=== PATIENT | male | born 1985 | race Caucasian/White ===

== ENCOUNTER 2016-12-11 08:38 | Emergency (ER) | payer BC ==
[2016-12-11 08:56] VITALS: BP 142/85
--- NOTE | 2016-12-11 09:06 | UC ---
Abdominal Pain Male HPI - HPI Summary HPI Summary: ONSET THIS MORNING OF SHARP RIGHT LOW BACK PAIN AND RIGHT LOWER ABDOMEN/GROIN PAIN. INTERMITTENT NAUSEA. DENIES URINARY SX. NO FEVER. WONDERS IF HE HURT HIS BACK PUSHING HIS CAR OUT OF THE SNOW YESTERDAY. CAN NOT GET COMFORTABLE. TOOK 400MG IBUPROFEN 2.5 HOURS AGO - NO NOTICEABLE RELIEF. - History of Current Complaint Chief Complaint: UCBackPain Stated Complaint: LOWER BACK PAIN Time Seen by Provider: 12/11/16 08:52 Hx Obtained From: Patient Onset/Duration: Sudden Onset, Lasting Hours, Still Present Timing: Constant Severity Initially: Moderate Severity Currently: Severe Pain Intensity: 8 Pain Scale Used: 0-10 Numeric Location: Discrete At: RLQ Radiates: Yes Radiates to: Back, Flank Character: Sharp Aggravating Factor(s):: Nothing Alleviating Factor(s): Nothing Associated Signs And Symptoms: Positive: Back Pain, Nausea. Negative: Fever, Constipation, Blood in Stool, Urinary Symptoms, Vomiting, Diarrhea - Allergies/Home Medications Allergies/Adverse Reactions: Allergies Allergy/AdvReac Type Severity Reaction Status Date / Time Cyclobenzaprine Allergy See Comment Verified 12/11/16 08:46 [From Flexeril] Home Medications: Home Medications Armodafinil [Nuvigil] 1 tab PO DAILY 12/11/16 [History Confirmed 12/11/16] Ibuprofen TAB* [Advil TAB*] 2 tab PO PRN 12/11/16 [History] PMH/Surg Hx/FS Hx/Imm Hx Previously Healthy: Yes - Surgical History Surgical History: None - Family History Known Family History: Positive: Hypertension, Other - THYROID DISEASE - Social History Alcohol Use: Rare Substance Use Type: None Smoking Status (MU): Never Smoked Tobacco Review of Systems Constitutional: Negative Respiratory: Negative Cardiovascular: Negative Gastrointestinal: Abdominal Pain, Other - NAUSEA All Other Systems Reviewed And Are Negative: Yes Physical Exam Triage Information Reviewed: Yes Appearance: Well-Nourished, Pain Distress - MODERATE Vital Signs: Initial Vital Signs Temp 98.8 F 12/11/16 08:47 Pulse 80 12/11/16 08:47 Resp 18 12/11/16 08:47 BP 142/85 12/11/16 08:47 Pulse Ox 100 12/11/16 08:47 Vital Signs Reviewed: Yes Eyes: Positive: Conjunctiva Clear ENT: Positive: Hearing grossly normal Neck: Positive: Supple, Nontender, No Lymphadenopathy Respiratory Exam: Normal Cardiovascular Exam: Normal Abdomen Description: Positive: Soft, CVA Tenderness (R), Other: - TTP RLQ. NO REBOUND, RIGIDITY OR GUARDING. Negative: CVA Tenderness (L), Distended, Guarding Bowel Sounds: Positive: Present Musculoskeletal: Positive: No Edema Neurological: Positive: Alert Psychological: Positive: Age Appropriate Behavior Skin: Negative: rashes Diagnostics - Laboratory Diagnostic Studies Completed/Ordered: URINE DIP SP. GR 1.015, 1+ BLOOD Abd Pain Male Course/Dx - Course Course Of Treatment: PT REPORTS HE IS FEELING BETTER AFTER URINATING. DISCUSSED POSSIBILITY OF KIDNEY STONE AND EARLY APPENDICITIS. OFFERED CT SCAN AND DISCUSSED POSSIBLE TRANSFER TO ER. PT DECLINES ANY TESTING AT THE MOMENT AND PREFERS TO GO HOME WITH CAREFUL OBSERVATION. ADVISED TO GO TO THE ER WITHOUT FAIL IF SX WORSEN. - Differential Dx/Clinical Impression Differential Diagnosis/HQI/PQRI: Appendicitis, Ischemic Bowel, Renal Colic, Ureteral Stone Provider Diagnoses: 1. FLANK PAIN/RLQ PAIN, NOS. 2. MICROSCOPIC HEMATURIA Discharge - Discharge Plan Condition: Stable Disposition: HOME Prescriptions: Ondansetron ODT TAB* [Zofran Odt TAB*] 4 mg PO Q6H PRN #20 tab.odt PRN Reason: Nausea/Vomiting Patient Education Materials: Hematuria (ED), Abdominal Pain (ED), Flank Pain ( ED) Additional Instructions: YOUR SYMPTOMS MAY BE INDICATIVE OF A KIDNEY STONE OR EARLY APPENDICITIS. GO TO THE ER WITHOUT FAIL IF YOU DEVELOP WORSENING PAIN, FEVER, NAUSEA, THE INABILITY TO PASS URINE OR ANY OTHER CONCERNING SYMPTOMS. STAY WELL HYDRATED. FOLLOW-UP WITH YOUR PCP IN [place] TO ENSURE THAT ONCE YOU ARE FEELING BETTER THE BLOOD IN YOUR URINE HAS RESOLVED. ABDOMINAL PAIN: There are many causes of abdominal pain. Pain can mean a serious problem requiring surgery (such as appendicitis), or an innocent problem which goes away on its own (such as a viral infection). Often, time must pass to determine the cause of pain. The physician does not feel that hospitalization is necessary, at present. Conditions may change, however, within the next 24 hours. Therefore, call the doctor or come back for re-examination if any problems occur, such as: 1) Pain which becomes more severe, steady, or becomes concentrated in one specific area. Also, pain which is more severe with movement or coughing. 2) Vomiting which persists or becomes more frequent. 3) Blood in the vomitus, urine, or bowel movements. Blood in the stool may have a tarry or black appearance. 4) Shaking chills or fever greater than 100 degrees F. 5) The abdomen becomes more distended or swollen. 6) Bowel movements cease. 7) Failure to improve as expected. OBSERVATION FOR APPENDICITIS: At this time, the abdominal pain does not seem to be appendicitis. Our next "test" will be passage of time. If you have early appendicitis, signs will appear to help us make the diagnosis. Most of the time, the pain goes away. In these cases, the pain is usually due to a virus in the lymph glands near the appendix, or due to an ovarian cyst or ovulation. Unless the pain is gone, you should come back for a recheck. This is usually done in 8 to 12 hours. Be sure you understand your follow-up instructions. Come back immediately if: (1) the pain becomes much more severe and sharply increases with movement or coughing, (2) vomiting becomes frequent, (3) there is blood in the vomit, urine, or bowel movements, (4) there are shaking chills or fever, or (5) the abdomen becomes more distended or swollen.
== END 2016-12-11 09:35 | disposition home or self-care (01) ==
LOC: UCEAST 08:38
DX: R10.31 Right lower quadrant pain (principal); R31.29 Other microscopic hematuria; Z88.1 Allergy status to other antibiotic agents
CPT/HCPCS: 81002; 99202; G0463

== ENCOUNTER 2016-12-11 12:59 | Emergency (ER) | payer BC ==
[2016-12-11] MEDS ORDERED: NS 0.9% 1000 ML* 1,000 ML IV ONE (13:08)
[2016-12-11] MEDS ORDERED: Ketorolac INJ* 30 MG/ML 1 ML VIAL IV ONE (13:08)
[2016-12-11] MEDS ORDERED: Ondansetron INJ* 2 MG/ML VIAL IV ONE (13:14)
--- NOTE | 2016-12-11 13:55 | RAD ---
CLINICAL HISTORY: Flank pain, right COMPARISON: None TECHNIQUE: Multiple contiguous axial CT scans were obtained of the abdomen and pelvis, without intravenous contrast enhancement. Coronal and sagittal multiplanar reformations are submitted for review. Oral contrast was not administered. FINDINGS: The study is limited by the lack of intravenous contrast. This limits evaluation of the solid organs and vasculature. LUNG BASES: The lung bases are clear. LIVER: The liver is normal in shape, size, contour, and attenuation. BILE DUCTS: There is no intrahepatic or extrahepatic biliary dilatation. GALLBLADDER: The gallbladder is normal, without pericholecystic inflammatory change. PANCREAS: The pancreas is normal, without mass or ductal dilatation. SPLEEN: Normal in size and appearance. UPPER GI TRACT: Evaluation of the gastrointestinal tract is limited by incomplete gastric distention. The upper GI tract is unremarkable. SMALL BOWEL AND MESENTERY: The small bowel is normal in contour, course, and caliber. There is no obstruction or dilatation. COLON: The colon is normal in contour, course, caliber. There is no pericolonic inflammatory change. ADRENALS: Normal bilaterally. KIDNEYS: There is a 0.4 cm calculus of the right UVJ with mild hydroureter and pelviectasis and mild perinephric stranding BLADDER: The bladder is smooth in contour. PELVIC ORGANS: The prostate gland is normal. The seminal vesicles are symmetric. AORTA: The aorta is normal. IVC: Unremarkable LYMPH NODES: There is no lymphadenopathy by size criteria. ABDOMINAL WALL: There is no evidence for abdominal wall hernia. BONES AND SOFT TISSUES: The bones and soft tissues are unremarkable. OTHER: None IMPRESSION: 0.4 CM RIGHT UVJ STONE WITH MINIMAL HYDRONEPHROSIS AND PERINEPHRIC STRANDING
[2016-12-11 13:59] LABS: Hematocrit 40 % (42-52); Hemoglobin 13.8 g/dl (14.0-18.0); Mean Corpuscular HGB Conc 34 g/dl (31-36); Mean Corpuscular Hemoglobin 32 pg (27-31); Mean Corpuscular Volume 92 fL (80-94); Mean Platelet Volume 10 um3 (7.4-10.4); Red Blood Count 4.36 10^6/ul (4.0-5.4); Red Cell Distribution Width 13 % (10.5-15); White Blood Count 11.4 10^3/ul (3.5-10.8)
[2016-12-11] MEDS ORDERED: Acetaminophen TAB* 325 MG PO ONE (14:11)
[2016-12-11 14:14] LABS: ALT 16 U/L (7-52); AST 19 U/L (13-39); Albumin 4.5 g/dL (3.2-5.2); Alkaline Phosphatase 59 U/L (34-104); Amylase 51 U/L (29-103); Anion Gap 6 mmol/L (2-11); Blood Urea Nitrogen 21 mg/dL (6-24); C Reactive Protein < 1.00 mg/L (< 5.00); CO2 Carbon Dioxide 24 mmol/L (22-32); Calcium 9.6 mg/dL (8.6-10.3); Chloride 103 mmol/L (101-111); EGFR African American 69.3 (>60); EGFR Non-African American 53.9 (>60); Globulin 2.1 g/dL (2-4); Glucose 95 mg/dL (70-100); Lipase 28 U/L (11.0-82.0); Potassium 4.3 mmol/L (3.5-5.0); Sodium 133 mmol/L (133-145); Total Protein 6.6 g/dL (6.4-8.9)
[2016-12-11 14:50] LABS: Urine Bacteria Absent (Absent); Urine Bilirubin Negative (Negative); Urine Glucose Negative (Negative); Urine Nitrite Negative (Negative)
[2016-12-11] MEDS ORDERED: Tamsulosin CAP* 0.4 MG PO ONE (15:10)
--- NOTE | 2016-12-11 15:29 | ED ---
Tahir Tolliver Billy, scribed for Doug Duenas MD on 12/11/16 at 1313 . GI/ HPI - HPI Summary HPI Summary: Patient is a 31 year-old male coming to [facility] from [facility] with sudden onset of right flank pain at 0300 this morning. He states that he woke up with pain, radiating to the lower back. Pain severity 10/10. He also reports nausea, denies any vomiting. Patient denies any history of kidney stones. He reports that he tried to push his car from his driveway yesterday. - History of Current Complaint Chief Complaint: EDFlankPain Time Seen by Provider: 12/11/16 13:08 Stated Complaint: RIGHT FLANK PAIN Hx Obtained From: Patient Onset/Duration: Started Hours Ago, Still Present Timing: Constant Severity: Moderate Current Severity: Moderate Pain Intensity: 10 Location of Pain: Flank Associated Signs and Symptoms: Positive: Back Pain Aggravating Factor(s): Nothing Alleviating Factor(s): Nothing - Allergy/Home Medications Allergies/Adverse Reactions: Allergies Allergy/AdvReac Type Severity Reaction Status Date / Time Cyclobenzaprine Allergy See Comment Verified 12/11/16 13:03 [From Flexeril] Home Medications: Home Medications Armodafinil (NF) [Nuvigil (NF)] 150 mg PO DAILY 12/11/16 [History Confirmed 08/17] Ibuprofen TAB* [Advil TAB*] 400 mg PO Q6H PRN 12/11/16 [History Confirmed ] PMH/Surg Hx/FS Hx/Imm Hx GI History: Reports: Other GI Disorders - inguinal hernia (left) History: Denies: Hx Kidney Stones Neurological History: Reports: Other Neuro Impairments/Disorders - narcolepsy Infectious Disease History: No Infectious Disease History: Denies: Traveled Outside the [place] in Last 30 Days - Family History Known Family History: Positive: Hypertension, Other - THYROID DISEASE - Social History Alcohol Use: Weekly Substance Use Type: Reports: None Smoking Status (MU): Never Smoked Tobacco Review of Systems Positive: Nausea. Negative: Vomiting Positive: flank pain All Other Systems Reviewed And Are Negative: Yes Physical Exam - Summary Physical Exam Summary: VITAL SIGNS: Reviewed. GENERAL: Patient is a well developed and nourished male with acute distress secondary to pain. Patient is not in any acute respiratory distress. HEAD AND FACE: Normocephalic and atraumatic. EYES: PERRLA, EOMI x 2, No injected conjunctiva. EARS: Hearing grossly intact. Ear canals and tympanic membranes are WNL. MOUTH: Oropharynx within normal limits. NECK: Supple, trachea is midline, no adenopathy, no JVD. CHEST: Symmetric, no tenderness at palpation LUNGS: Clear to auscultation bilaterally. No wheezing or crackles. CVS: RRR,, S1 and S2 present, no murmurs or gallops appreciated. ABDOMEN: Soft, non-tender. No signs of distention. Positive bowel sounds. No rebound no guarding, and no masses palpated. No abdominal bruit or pulsations. Positive right CVAT's. EXTREMITIES: FROM in all major joints, no edema, no cyanosis or clubbing. NEURO: Alert and oriented x 3. No acute neurological deficits. Speech is normal. SKIN: Dry and warm Triage Information Reviewed: Yes Vital Signs On Initial Exam: Initial Vitals Temp Pulse Resp BP Pulse Ox 100 F 71 20 134/84 100 12/11/16 13:03 12/11/16 13:03 12/11/16 13:03 12/11/16 13:03 12/11/16 13:03 Vital Signs Reviewed: Yes Diagnostics - Vital Signs Vital Signs Temp Pulse Resp BP Pulse Ox 12/11/16 13:03 100 F 71 20 134/84 100 - Laboratory Lab Results: Lab Results 12/11/16 12/11/16 12/11/16 Range/Units 13:25 13:25 13:40 WBC 11.4 H (3.5-10.8) 10^3/ul RBC 4.36 (4.0-5.4) 10^6/ul Hgb 13.8 L (14.0-18.0) g/dl Hct 40 L (42-52) % MCV 92 (80-94) fL MCH 32 H (27-31) pg MCHC 34 (31-36) g/dl RDW 13 (10.5-15) % Plt Count 199 (150-450) 10^3/ul MPV 10 (7.4-10.4) um3 Neut % (Auto) 75.6 (38-83) % Lymph % (Auto) 12.6 L (25-47) % [place] % (Auto) 10.1 H (1-9) % Eos % (Auto) 1.2 (0-6) % Baso % (Auto) 0.5 (0-2) % Absolute Neuts (auto) 8.6 H (1.5-7.7) 10^3/ul Absolute Lymphs (auto) 1.4 (1.0-4.8) 10^3/ul Absolute Monos (auto) 1.2 H (0-0.8) 10^3/ul Absolute Eos (auto) 0.1 (0-0.6) 10^3/ul Absolute Basos (auto) 0.1 (0-0.2) 10^3/ul Absolute Nucleated RBC 0.01 10^3/ul Nucleated RBC % 0.1 Sodium 133 (133-145) mmol/L Potassium 4.3 (3.5-5.0) mmol/L Chloride 103 (101-111) mmol/L Carbon Dioxide 24 (22-32) mmol/L Anion Gap 6 (2-11) mmol/L BUN 21 (6-24) mg/dL Creatinine 1.50 H (0.67-1.17) mg/dL Est GFR ( Amer) 69.3 (>60) Est GFR (Non-Af Amer) 53.9 (>60) BUN/Creatinine Ratio 14.0 (8-20) Glucose 95 (70-100) mg/dL Calcium 9.6 (8.6-10.3) mg/dL Total Bilirubin 2.00 H (0.2-1.0) mg/dL AST 19 (13-39) U/L ALT 16 (7-52) U/L Alkaline Phosphatase 59 (34-104) U/L C-Reactive Protein < 1.00 (< 5.00) mg/L Total Protein 6.6 (6.4-8.9) g/dL Albumin 4.5 (3.2-5.2) g/dL Globulin 2.1 (2-4) g/dL Albumin/Globulin Ratio 2.1 (1-3) Amylase 51 (29-103) U/L Lipase 28 (11.0-82.0) U/L Urine Color Straw Urine Appearance Clear Urine pH 6.0 (5-9) Ur Specific [place] 1.009 L (1.010-1.030) Urine Protein Negative (Negative) Urine Ketones 1+ H (Negative) Urine Blood 2+ H (Negative) Urine Nitrate Negative (Negative) Urine Bilirubin Negative (Negative) Urine Urobilinogen Negative (Negative) Ur Leukocyte Esterase Negative (Negative) Urine WBC (Auto) Absent (Absent) Urine RBC (Auto) 3+(>10/hpf) H (Absent) Urine Bacteria Absent (Absent) Urine Glucose Negative (Negative) Result Diagrams: 12/11/16 13:25 12/11/16 13:25 Lab Statement: Any lab studies that have been ordered have been reviewed, and results considered in the medical decision making process. - CT abd/pel CT Interpretation Completed By: Radiologist - 0.4 CM RIGHT UVJ STONE WITH MINIMAL HYDRONEPHROSIS AND PERINEPHRIC STRANDING Re-Evaluation - Re-Evaluation First Eval Re-Evaluation Time: 14:10 Change: Improved Comment: CT abd/pel results reviewed. Pain improved, now 3/10. Second Eval Re-Evaluation Time: 15:10 Change: Improved Comment: Pain 0/10. GIGU Course/Dx - Course Assessment/Plan: Patient is a 31 year-old male coming to [facility] from [facility] with sudden onset of right flank pain at 0300 this morning. He states that he woke up with pain, radiating to the lower back. Pain severity 10/10. He also reports nausea, denies any vomiting. Patient denies any history of kidney stones. He reports that he tried to push his car from his driveway yesterday. Bloodwork WNL except for WBC of 11.4, slight anemia, creatinine of 1.5, and UA with 3+ blood. CT abd/pel shows 0.4mm UVJ stone.In the ED course, patient was given IV fluids and 1x dose of Toradol and tylenol for pain. At this time, he is asymptomatic, pain 0/10. I will give 1x dose of Flomax. Since the patient is asymptomatic, he will be discharged home of increasing his water intake, to take pain medications PRN. The patient specifically requested to not be given any narcotic pain medications for pain management. He was encouraged not to take ibuprofen sinec he has an increased creatinine. He was instructed to return to the ED with any fever, increased pain not controlled by pain medications, and any other symptoms. He understands and agrees. - Diagnoses Differential Diagnoses - Male: Renal Calculi, Renal Colic, Ureteral Calculi, Urinary Tract Infection Provider Diagnoses: UVJ stone Discharge - Discharge Plan Condition: Stable Disposition: HOME Prescriptions: Tamsulosin CAP* [Flomax CAP*] 0.4 mg PO BEDTIME #12 cap Patient Education Materials: Kidney Stones (ED) Referrals: Afshin Dial MD [Primary Care Provider] - The documentation as recorded by the Tahir enrique Billy accurately reflects the service I personally performed and the decisions made by , Doug Duenas MD.
[2016-12-11 15:46] VITALS: BP 143/77
== END 2016-12-11 15:45 | disposition home or self-care (01) ==
LOC: ED 12:59
DX: R10.9 Unspecified abdominal pain (principal); M54.5 Low back pain; R11.0 Nausea; N20.1 Calculus of ureter
CPT/HCPCS: 36415; 74176; 80053; 81003; 81015; 82150; 83690; 85025; 86140; 96374; 96375; 99283; A9270-GY; J1885; J2405